=== PATIENT | male | born 1965 | race Caucasian/White ===

== ENCOUNTER 2022-02-01 10:22 | Inpatient (IN) | payer OTHER ==
[2022-02-01] VITALS (12 sets, daily range): BP systolic 74–173; BP diastolic 38–91
[~2022-02-01] VITALS: Ht 165.1 cm; Wt 85.3 kg
[2022-02-01 11:25] LABS: HEMATOCRIT. 28.9 % (42.0-52.0); MEAN CORPUSCULAR HEMOGLOBIN 33.3 pg (28.0-32.0); MEAN CORPUSCULAR VOLUME 96.2 fL (80.0-94.0); PLATELET 179 x1000/uL (130-400); RED BLOOD CELL COUNT 3.01 mill/uL (4.7-6.1); RED CELL DISTRIBUTION WIDTH 13.3 % (11.6-14.6)
[2022-02-01 11:34] LABS: CHLORIDE 98 mEq/L (98-107)
[2022-02-01 12:12] LABS: PLATELET ESTIMATE NORMAL
[2022-02-01] MEDS ORDERED: SODIUM POLYSTYRENE SULFONATE 15 G/60 ML BOT PO ONE (12:45)
[2022-02-01] MEDS ORDERED: HYDRALAZINE 20MG/ML VIAL IV PRN (14:30)
[2022-02-01] MEDS ORDERED: ONDANSETRON HCL 4MG/2ML INJ IV PRN (14:30)
[2022-02-01] MEDS ORDERED: MORPHINE SULFATE 2 MG/ML CPJ (NOT FOR IM USE) IV PRN (14:30)
[2022-02-01] MEDS ORDERED: ACETAMINOPHEN 325MG TABLET PO PRN (14:30)
[2022-02-01] MEDS ORDERED: IPRATROPIUM/ALBUTEROL 0.5-3(2.5)MG/3ML NEB HHN PRN (14:30)
[2022-02-01] MEDS ORDERED: CLONIDINE 0.1MG TABLET PO PRN (14:30)
[2022-02-01] MEDS ORDERED: NALOXONE HCL 0.4MG/ML VIAL IV PRN (14:45)
[2022-02-01] MEDS: DIPHENHYDRAMINE 50MG/ML VIAL IV PRN (17:42)
[2022-02-01 18:09] LABS: VITAMIN B12 SERUM 1664 pg/mL (211-911)
[2022-02-01 18:42] LABS: HEPATITIS B SURFACE ANTIGEN NEGATIVE
[2022-02-02] VITALS (12 sets, daily range): BP systolic 114–148; BP diastolic 60–95
[2022-02-02] MEDS ORDERED: SEVELAMER CARBONATE 800 MG TABLET PO SCH (00:15)
[2022-02-02] MEDS: FOLIC ACID/VITAMIN B COMP W-C TABLET PO SCH ×2 (02:08→08:34)
[2022-02-02] MEDS: DIPHENHYDRAMINE 50MG/ML VIAL IV PRN (02:08)
[2022-02-02] MEDS: BENAZEPRIL 10MG TABLET PO SCH ×3 (02:15→21:03)
[2022-02-02 06:37] LABS: BASOPHILS % 1.1 % (0.0-2.0); EOSINOPHILS % 14.2 % (0.0-5.0); HEMOGLOBIN. 11.5 g/dL (14.0-18.0); LYMPHOCYTES % 16.2 % (20.0-50.0); MEAN CORPUSCULAR VOLUME 94.6 fL (80.0-94.0); MEAN PLATELET VOLUME 8.9 fl (7.4-10.4); MONOCYTES % 7.9 % (2.0-8.0); NEUTROPHILS % 60.6 % (40.0-76.0); PLATELET 214 x1000/uL (130-400); RED BLOOD CELL COUNT 3.49 mill/uL (4.7-6.1); RED CELL DISTRIBUTION WIDTH 13.2 % (11.6-14.6)
[2022-02-02 06:54] LABS: CHLORIDE 95 mEq/L (98-107)
[2022-02-02] MEDS: SEVELAMER CARBONATE 800 MG TABLET PO SCH ×3 (07:20→17:05)
[2022-02-02] MEDS ORDERED: POLYVINYL ALCOHOL OPHTH DROPS 15ML BOTHEYE PRN (19:00)
[2022-02-02] MEDS ORDERED: EPOETIN ALFA-EPBX 4,000 UNIT/ML VIAL SUBCUT NR (21:00)
[2022-02-02] MEDS ORDERED: EPOETIN ALFA-EPBX 4,000 UNIT/ML VIAL SUBCUT PRN ×2 (21:00)
[2022-02-03] VITALS (7 sets, daily range): BP systolic 112–149; BP diastolic 67–88
[2022-02-03] MEDS: DIPHENHYDRAMINE 50MG/ML VIAL IV PRN (01:19)
[2022-02-03 07:20] LABS: HEMATOCRIT. 34.4 % (42.0-52.0); HEMOGLOBIN. 12.2 g/dL (14.0-18.0); MEAN CORPUSCULAR HEMOGLOBIN 33.4 pg (28.0-32.0); MEAN CORPUSCULAR VOLUME 94.1 fL (80.0-94.0); MEAN PLATELET VOLUME 9.1 fl (7.4-10.4); PLATELET 225 x1000/uL (130-400); RED BLOOD CELL COUNT 3.65 mill/uL (4.7-6.1); RED CELL DISTRIBUTION WIDTH 13.3 % (11.6-14.6)
[2022-02-03] MEDS: SEVELAMER CARBONATE 800 MG TABLET PO SCH ×3 (08:15→17:00)
[2022-02-03] MEDS: FOLIC ACID/VITAMIN B COMP W-C TABLET PO SCH (08:15)
[2022-02-03] MEDS: BENAZEPRIL 10MG TABLET PO SCH ×2 (08:15→20:35)
[2022-02-03 11:27] LABS: PLATELET ESTIMATE NORMAL
[2022-02-03] MEDS: CARVEDILOL 3.125 MG TABLET PO SCH (20:32)
[2022-02-04] VITALS (12 sets, daily range): BP systolic 116–179; BP diastolic 51–107
[2022-02-04 06:11] LABS: HEMATOCRIT. 35.1 % (42.0-52.0); HEMOGLOBIN. 12.3 g/dL (14.0-18.0); MEAN CORPUSCULAR VOLUME 93.8 fL (80.0-94.0); MEAN PLATELET VOLUME 8.9 fl (7.4-10.4); PLATELET 229 x1000/uL (130-400); RED BLOOD CELL COUNT 3.74 mill/uL (4.7-6.1); RED CELL DISTRIBUTION WIDTH 13.4 % (11.6-14.6)
[2022-02-04] MEDS: DIPHENHYDRAMINE 50MG/ML VIAL IV PRN (06:48)
[2022-02-04] MEDS: SEVELAMER CARBONATE 800 MG TABLET PO SCH ×3 (09:13→16:09)
[2022-02-04] MEDS: FOLIC ACID/VITAMIN B COMP W-C TABLET PO SCH (09:13)
[2022-02-04] MEDS: CARVEDILOL 3.125 MG TABLET PO SCH (09:13)
[2022-02-04] MEDS: BENAZEPRIL 10MG TABLET PO SCH ×2 (09:13→21:31)
[2022-02-04 11:39] LABS: PLATELET ESTIMATE NORMAL
[2022-02-04] MEDS ORDERED: MECLIZINE 25MG TABLET PO PRN (12:30)
[2022-02-04] MEDS: CARVEDILOL 6.25 MG TABLET PO SCH (21:31)
[2022-02-05] VITALS (7 sets, daily range): BP systolic 115–135; BP diastolic 70–113
[2022-02-05] MEDS: DIPHENHYDRAMINE 50MG/ML VIAL IV PRN ×2 (01:04→15:01)
[2022-02-05] MEDS: SEVELAMER CARBONATE 800 MG TABLET PO SCH ×3 (06:59→18:34)
[2022-02-05] MEDS: CARVEDILOL 6.25 MG TABLET PO SCH ×2 (09:24→21:33)
[2022-02-05] MEDS: BENAZEPRIL 10MG TABLET PO SCH ×2 (09:24→21:32)
[2022-02-05] MEDS: FOLIC ACID/VITAMIN B COMP W-C TABLET PO SCH (09:25)
[2022-02-06] VITALS (7 sets, daily range): BP systolic 120–163; BP diastolic 72–111
[2022-02-06] MEDS: SEVELAMER CARBONATE 800 MG TABLET PO SCH ×2 (06:51→12:52)
[2022-02-06] MEDS: FOLIC ACID/VITAMIN B COMP W-C TABLET PO SCH (09:46)
[2022-02-06] MEDS: BENAZEPRIL 10MG TABLET PO SCH ×2 (09:47→22:03)
[2022-02-06] MEDS: CARVEDILOL 6.25 MG TABLET PO SCH ×2 (09:48→22:03)
[2022-02-06] MEDS ORDERED: SEVE800T8 PO (10:26)
[2022-02-06] MEDS ORDERED: COR6 PO (10:26)
[2022-02-06] MEDS ORDERED: NEPVIT PO (10:26)
[2022-02-06] MEDS ORDERED: BENA10TA74 PO (10:26)
[2022-02-07] VITALS (12 sets, daily range): BP systolic 79–167; BP diastolic 49–101
[2022-02-07] MEDS: DIPHENHYDRAMINE 50MG/ML VIAL IV PRN (01:33)
[2022-02-07] MEDS: SEVELAMER CARBONATE 800 MG TABLET PO SCH ×2 (06:49→14:55)
[2022-02-07] MEDS: CARVEDILOL 6.25 MG TABLET PO SCH (08:27)
[2022-02-07] MEDS: BENAZEPRIL 10MG TABLET PO SCH (08:27)
[2022-02-07] MEDS: FOLIC ACID/VITAMIN B COMP W-C TABLET PO SCH (08:28)
== END 2022-02-07 15:00 | disposition home or self-care (01) | DRG 304 ==
LOC: ER 10:22 → 3WST 13:44 → EDBEDREQ 13:52 → EDBEDREQTM 13:52 → 3WST 02-05 08:32
PROVIDERS: ADMIT Internal Medicine; ATTEND Internal Medicine
PROC: 5A1D70Z Performance of Urinary Filtration, Intermittent, Less than 6 Hours Per Day (ICD-10-PCS; 2022-02-01)
PROC: 5A1D70Z Performance of Urinary Filtration, Intermittent, Less than 6 Hours Per Day (ICD-10-PCS; 2022-02-02)
PROC: 5A1D70Z Performance of Urinary Filtration, Intermittent, Less than 6 Hours Per Day (ICD-10-PCS; 2022-02-04)
PROC: 5A1D70Z Performance of Urinary Filtration, Intermittent, Less than 6 Hours Per Day (ICD-10-PCS; principal; 2022-02-07)
DX: I16.0 Hypertensive urgency (principal); N18.6 End stage renal disease; E87.1 Hypo-osmolality and hyponatremia; I12.0 Hypertensive chronic kidney disease with stage 5 chronic kidney disease or end stage renal disease; Z99.2 Dependence on renal dialysis; D53.9 Nutritional anemia, unspecified; D63.1 Anemia in chronic kidney disease; E03.9 Hypothyroidism, unspecified; E87.5 Hyperkalemia; E87.70 Fluid overload, unspecified; E53.8 Deficiency of other specified B group vitamins; R74.01 Elevation of levels of liver transaminase levels; D50.9 Iron deficiency anemia, unspecified; E66.3 Overweight; Z68.31 Body mass index [BMI] 31.0-31.9, adult
CPT/HCPCS: 36415; 70551; 71045; 76700; 80048; 80053; 82607; 82746; 84484; 85025; 86705; 86709; 86803; 87340; 90935; 93005; 93970; 97162; 99285; J1200